=== PATIENT | male | born 1995 | race Two or more races ===

== ENCOUNTER 2016-12-20 14:10 | Emergency (ER) | payer OTHER ==
[~2016-12-20] VITALS: Ht 170.2 cm; Wt 74.8 kg
[2016-12-20 14:15] VITALS: BP 130/68
[2016-12-20] MEDS ORDERED: IBUPROFEN 600 MG TAB PO ONE (15:15)
== END 2016-12-20 16:31 | disposition home or self-care (01) ==
LOC: ER 14:11
DX: S80.01XA Contusion of right knee, initial encounter (principal); W01.0XXA Fall on same level from slipping, tripping and stumbling without subsequent striking against object, initial encounter; Y93.89 Activity, other specified; Y99.8 Other external cause status; Y92.29 Other specified public building as the place of occurrence of the external cause
CPT/HCPCS: 73564; 73590